=== PATIENT | female | born 1990 | race Caucasian/White ===

== ENCOUNTER 2016-07-08 20:17 | Emergency (ER) | payer BC ==
[2016-07-08] MEDS ORDERED: LIDOCAINE HCL 1% 50 MG/5 ML SOL INFIL ONE (20:40)
[2016-07-08] MEDS ORDERED: LIDOCAINE HCL 1% MPF SOL ONE (20:43)
[2016-07-08 23:37] VITALS: BP 137/92; PULSE 106; RESP 20; TEMP 97.6; O2SAT 99
== END 2016-07-08 21:30 | disposition home or self-care (01) ==
LOC: ED 20:17
DX: S61.012A Laceration without foreign body of left thumb without damage to nail, initial encounter (principal); W26.0XXA Contact with knife, initial encounter
CPT/HCPCS: 12001; 99283; J2001